=== PATIENT | male | born 1985 | race Hispanic/Latino ===

== ENCOUNTER 2017-02-07 15:11 | Emergency (ER) | payer OTHER ==
--- NOTE | 2017-02-07 16:45 | ED NECK/BACK PAIN COMPLAINT ---
History of Present Illness General Chief Complaint: Low Back Pain/Injury Stated Complaint: LBP Source: patient, family Exam Limitations: language barrier Vital Signs & Intake/Output Vital Signs & Intake/Output Vital Signs Date Time Temp Pulse Resp B/P B/P Pulse O2 O2 Flow FiO2 Mean Ox Delivery Rate 02/08 2004 98.6 72 16 133/80 97 Room Air 02/07 1744 98.7 89 18 140/72 99 Room Air 02/07 1712 96 02/07 1534 98.8 87 15 118/68 97 Room Air Room Air Allergies Coded Allergies: No Known Allergies (02/07/17) Triage Note: PT TO ED FOR LOWER BACK PAIN S/P TREE FELL ON PT AT WORK TODAY. PT REPORTS HE DID HIT HIS HEAD BUT DENIES ANY HEAD/NECK PAIN. DENIES DIFFICULTY BREATHING, BUT DOES HAVE RIB PAIN AND R ABD PAIN. PT IS ABLE TO MOVE FEEL AND HAS FEELING BIALTERALLY. Triage Nurses Notes Reviewed? yes Onset: Abrupt Duration: hour(s): Timing: single episode today Quality/Severity: moderate, severe Location: T-spine, lumbar spine, paraspinous muscles Radiation: DOWN RIGHT LEG TO KNEE Context: trauma Method of Injury: direct blow, fall HPI: 31-year-old male presents to emergency room complaining of right-sided back pain following injury at work today around 2 PM. Patient states that while at work a tree branch fell onto his back causing him to fall forward. Patient was able to walk following injury however with pain. Pain is described as constant, 10/10, radiating down right leg to right knee. Pain is worse with movement of back and elevation of the leg. Patient denies numbness, tingling, saddle anesthesia, urinary retention, bowel or bladder problems. (LOLIS BROWN) Past History Travel History Traveled to [place] past 21 day No Medical History Any Pertinent Medical History? none Neurological: NONE EENT: NONE Cardiovascular: NONE Respiratory: NONE Gastrointestinal: NONE Hepatic: NONE Renal: NONE Musculoskeletal: NONE Psychiatric: NONE Endocrine: NONE Blood Disorders: NONE Cancer(s): NONE Tetanus Vaccine: 11/03/12 Tetanus Status: up to date Surgical History Surgical History: non-contributory Psychosocial History What is your primary language Tajik Tobacco Use: Never used ETOH Use: denies use Illicit Drug Use: denies illicit drug use Family History Hx Contributory? No (LOLIS BROWN) Review of Systems Review of Systems Constitutional: Reports: no symptoms. Eyes: Reports: no symptoms. Ears, Nose, Throat, Mouth: Reports: no symptoms. Respiratory: Reports: no symptoms. Cardiovascular: Reports: no symptoms. Gastrointestinal/Abdominal: Reports: see HPI. Musculoskeletal: Reports: see HPI. Skin: Reports: no symptoms. Neurological/Psychological: Reports: no symptoms. All Other Systems: Reviewed and Negative (LOLIS BROWN) Physical Exam Physical Exam General Appearance: well developed/nourished, no apparent distress, alert Head: atraumatic, normal appearance Eyes: Bilateral: normal appearance, EOMI, normal inspection. Ears, Nose, Throat, Mouth: hearing grossly normal, moist mucous membrane Neck: normal inspection, supple, full range of motion, normal alignment Respiratory: normal breath sounds, chest non-tender, no respiratory distress, lungs clear Cardiovascular: regular rate/rhythm Gastrointestinal: normal bowel sounds, soft, tenderness Back: vertebral tenderness, evidence of trauma Extremities: non-tender, normal range of motion Neurologic/Psych: no motor/sensory deficits, awake, alert Skin: abrasion right thoracic back (LOLIS BROWN) Progress Differential Diagnosis: aortic dissection, C spine injury, carotid dissection, cauda equina syn, herniated disc, myofascial strain, pyelo/UTI, sciatica, spinal cord inj, thoracic outlet syn, T/L spine injury, ureterolithiasis Plan of Care: Orders Procedure Date/time Status PARTIAL THROMBOPLASTIN TIME 02/07 1657 Complete PROTHROMBIN TIME 02/07 1657 Complete COMPREHENSIVE METABOLIC PANEL 02/07 1657 Complete CBC WITHOUT DIFFERENTIAL 02/07 1657 Complete Laboratory Tests 02/07/17 1701: CBC w Diff NO MAN DIFF REQ, RBC 4.37 L, MCV 85.1, MCH 28.4, RDW 13.7, MPV 6.7 L, Gran % 85.8 H, Lymphocytes % 8.0 L, Monocytes % 6.1, Eosinophils % 0.1, Basophils % 0 L, Absolute Granulocytes 12.0 H, Absolute Lymphocytes 1.1 L, Absolute Monocytes 0.9 H, Absolute Eosinophils 0, Absolute Basophils 0, PUBS MCHC 33.4 02/07/17 1700: Anion Gap 14, Estimated GFR > 60, BUN/Creatinine Ratio 23.3, Glucose 123 H, Calcium 9.0, Total Bilirubin 0.3, AST 42, ALT 41, Alkaline Phosphatase 49, Total Protein 7.1, Albumin 4.3, Globulin 2.8, Albumin/Globulin Ratio 1.5, PT 10.3, INR 0.98, APTT 28 Diagnostic Imaging: Viewed by Me: Radiology Read, CT Scan. Discussed w/RAD: Radiology Read, CT Scan. Radiology Impression: PATIENT: CORKY SOL PRESENT AGE: 31 PATIENT ACCOUNT NO: [id number] : 87 LOCATION: [facility] ORDERING PHYSICIAN: VARGAS ARMSTRONG SERVICE DATE: 02/07/17 EXAM TYPE: RAD - XRY-RIBS BILATERAL ADDENDUM: There are thirteen rib-bearing vertebral bodies. FINDINGS: Lungs are clear. No consolidation, pneumothorax, or pleural effusion. The cardiomediastinal silhouette and pulmonary vasculature are normal. Evaluation of the osseous structures demonstrates acute nondisplaced fractures involving the right posterior 11th and 12th ribs. IMPRESSION: Acute nondisplaced fractures involving the right posterior 11th and 12th ribs. No left -sided rib fractures are identified. There are no pneumothoraces. Addendum Signed by: YAHAIRA ERNANDEZ MD 02/07 1720 EXAMINATION: XR RIBS, BILATERAL CLINICAL INFORMATION: Trauma. Evaluate for fracture. COMPARISON: None. TECHNIQUE : Single frontal view of the chest as well as 4 additional views of the bilateral ribs. FINDINGS: Lungs are clear. No consolidation, pneumothorax, or pleural effusion. The cardiomediastinal silhouette and pulmonary vasculature are normal. Evaluation of the osseous structures demonstrates an acute nondisplaced fracture involving the right posterior 11th rib as well as an acute nondisplaced fracture involving the right posterior 10th rib. IMPRESSION: Acute nondisplaced fractures involving the right posterior 10th and 11th ribs. No left-sided rib fractures are identified. There are no pneumothoraces. DICTATED BY: YAHAIRA ERNANDEZ MD DATE/TIME DICTATED:02/07/171655 PORCELAIN FINISH SPRAYER:DAV DATE/TIME TRANSCRIBED:02/07/171655 CONFIDENTIAL, DO NOT COPY WITHOUT APPROPRIATE AUTHORIZATION. <Electronically signed in Other Vendor System> SIGNED BY: YAHAIRA ERNANDEZ MD 02/07/17 1710, PATIENT: CORKY SOL PRESENT AGE: 31 PATIENT ACCOUNT NO: [id number] : 87 LOCATION: [facility] ORDERING PHYSICIAN: VARGAS ARMSTRONG SERVICE DATE: 02/07/176392 EXAM TYPE: RAD - XRY-LUMBAR SPINE ONE VIEW EXAMINATION: XR LUMBAR SPINE CLINICAL INFORMATION: Trauma. Assess for fracture. COMPARISON: Chest x-ray and right ribs also obtained 02/07/2017. TECHNIQUE: A single AP view of the lumbar spine was obtained. FINDINGS: There is a transitional vertebra at the thoracolumbar junction , with large ribs off the body of L1. There is a displaced fracture of the right transverse process of L5. There are less extensively displaced fractures of the L3 and L4 transverse processes on the right; the right L2 transverse process is obscured by overlying bowel but appears to have a displaced fracture on the chest/rib x-ray series. On the available image, vertebral body heights appear maintained. The sacroiliac joints are intact. The paravertebral structures on the left appear normal. There is loss of the psoas shadow on the right, which may be consistent with overlying bowel versus retroperitoneal fluid. The bowel gas pattern is nonspecific. There are no radiopaque foreign bodies. IMPRESSION: 1. There are multiple transverse process fractures on the right, and there may be a right retroperitoneal hematoma. Recommend CT scan of the abdomen and pelvis and of the thoracolumbar spine for further assessment. DICTATED BY: KONSTANTIN ASHBY MD DATE/TIME DICTATED:1654 PORCELAIN FINISH SPRAYER:DAV DATE/TIME TRANSCRIBED:02/07/171654 CONFIDENTIAL, DO NOT COPY WITHOUT APPROPRIATE AUTHORIZATION. <Electronically signed in Other Vendor System> SIGNED BY: KONSTANTIN ASHBY MD 02/07/17 1726, SERVICE DATE: 02/07/17 EXAM TYPE: CAT - CT ABD & PELVIS W IV CONTRAST; CT CHEST W IV CONTRAST EXAMINATION: CT CHEST WITH CONTRAST CT ABDOMEN AND PELVIS WITH CONTRAST CLINICAL INFORMATION: Status post trauma from fallen tree branch. Back pain and swelling. Rule out retroperitoneal bleeding. COMPARISON: Rib x-ray and lumbar spine x-rays of 02/07/2017. TECHNIQUE: Multidetector volumetric CT imaging of the chest, abdomen and pelvis was obtained after the administration of 95 mL of Optiray 320 intravenous contrast without immediate adverse reactions. Axial MIP volume rendering provided. Sagittal and coronal reformatted images were obtained. DLP: 371.77 mGy-cm FINDINGS: LAWN SPRINKLER INSTALLER: Unremarkable. CHEST: Lungs And Pleura: Mild dependent atelectasis is noted. The lungs are otherwise clear without evidence of nodules or inflammatory changes. No evidence of pneumothorax or pleural effusions. Mediastinum: No evidence of mediastinal vascular injury. The cardiac size is normal. No pericardial effusion. Trachea and central bronchi are well patent. No mediastinal or hilar adenopathy. Small soft tissue in the anterior superior mediastinum likely reflects residual thymus. Axilla And Chest Wall Soft Tissue: No axillary lymphadenopathy. Bilateral minimal gynecomastia is noted. The chest wall soft tissues are unremarkable except subcutaneous hematoma is noted in the wall of the right lower rib cage and right flank. ABDOMEN AND PELVIS: Liver, gallbladder and biliary tree: The liver is normal in size, shape and attenuation. No focal liver lesion or biliary ductal dilatation. The gallbladder is unremarkable without evidence of radiopaque stones, wall thickening or pericholecystic inflammatory changes. Pancreas: Unremarkable. Adrenal glands: Unremarkable. Spleen: Unremarkable. Kidneys, ureter and bladder: The kidneys are normal in size, shape and attenuation. There is symmetrical enhancement from the kidneys. No evidence of radiopaque urinary tract calculi, hydroureteronephrosis or perinephric stranding. The bladder is unremarkable without evidence of calculi, wall thickening or soft tissue mass. Gastrointestinal tract: The stomach is distended with ingested material and unremarkable. The small and large bowel loops are unremarkable. The appendix is normal. Peritoneum and retroperitoneum: A small amount of stranding is noted in the right retroperitoneum inferior to the kidney (series 602 image 49) reflecting small hematoma in this region. No free intraperitoneal air or fluid. Lymph nodes: No pathologically enlarged lymph nodes. Vasculature: No evidence of active contrast extravasation. The aortoiliac vessels are normal in caliber and well opacified. The vasculature is essentially unremarkable. Abdominal wall: Note is made of asymmetrical enlargement of the right paraspinous musculature from L2 to S1 level reflecting posttraumatic change/intramuscular hematoma. A large hematoma is noted in the subcutaneous tissue of the right lower chest wall posterolaterally extending into the right flank up to the level of iliac crest. It approximately measures 11.2 x 10.5 x 3.8 cm in maximum length, AP and transverse dimensions respectively. A small amount of dense fluid is noted in the subcutaneous tissue of the lower back in the midline (series 2 images 58 through 89). The psoas muscles are normal and symmetrical in appearance. Pelvic viscera: The prostate and seminal vesicles are unremarkable. OSSEOUS STRUCTURES: Please note that there are 13 rib-bearing thoracic-type vertebra and 4 [id number] lumbar-type vertebrae. Mildly displaced fractures of the right transverse processes of the L1, L2 and L4 are noted with nondisplaced fracture of the right transverse process of the L3. The vertebral body heights and alignment are maintained. The spinous processes are intact. There is a nondisplaced fracture of the posterior segment of the right 12th rib and 11th rib. No additional fractures are noted in the chest, abdomen and pelvis. IMPRESSION: 1. There are 13 thoracic-type vertebrae and 4 lumbar- type vertebrae. Mildly displaced fractures of the right transverse processes of the L1, L2 and L4 and nondisplaced fracture of the right transverse process of the L3. Nondisplaced fractures of the right 12th and 11th ribs posterior segments. 2. Moderate to large-sized hematoma in the subcutaneous tissue of the right lower chest wall extending into the right flank up to the level of superior margin of the iliac crest. Small right retroperitoneal hematoma at the inferior aspect of the kidney. Asymmetrical enlargement of the right paraspinous musculature, not involving the psoas muscle reflects posttraumatic change and may reflect intramuscular hematoma. Somewhat ill-defined hematoma in the subcutaneous tissue of the lower back in the midline. 3. No evidence of active contrast extravasation, solid or hollow viscus injury in the abdomen and pelvis. 4. No evidence of pleural effusions, pulmonary contusion or pneumothorax. DICTATED BY: NAHOMY MORALES MD DATE/TIME DICTATED:02/07/171846 PORCELAIN FINISH SPRAYER: DAV DATE/TIME TRANSCRIBED:02/07/171846 CONFIDENTIAL, DO NOT COPY WITHOUT APPROPRIATE AUTHORIZATION. Comments: 02/07/2017 9:06:39 PM Due to the fact that the patient has multiple traumatic injuries patient was transferred to [place] for further evaluation. Patient will require IV pain control. Patient was reevaluated multiple times and was hemodynamically stable here. We did not get a CT scan of his head or neck because he denied any trauma to this. (LISA ARMSTRONG,LOLIS) Departure Departure Disposition: [facility] (ACUTE) Condition: Stable Clinical Impression Primary Impression: Rib fracture Secondary Impressions: Multiple transverse process fractures, Retroperitoneal hematoma Referrals: PATIENT HAS NO PRIMARY CARE DR (PCP/Family) Departure Forms: Customer Survey Employee Industrial Accident General Discharge Information (LOLIS BROWN) PA/DEPUTY CLERK OF COURT Co-Sign Statement Statement: ED Attending supervision documentation- [x] I saw and evaluated the patient. I have also reviewed all the pertinent lab results and diagnostic results. I agree with the findings and the plan of care as documented in the PA's/DEPUTY CLERK OF COURT's documentation. [] I have reviewed the ED Record and agree with the PA's/DEPUTY CLERK OF COURT's documentation. [] Additions or exceptions (if any) to the PAs/DEPUTY CLERK OF COURT's note and plan are summarized below: [] (SERGIO KELLEY,TAINA New) Critical Care Note Critical Care Note Critical Care Time: 30-74 min (35) (LOLIS BROWN) ED Attending Observation Initial Observation Note: I have seen and personally examined CORKY SOL on 02/07/17 at 1859. I agree with the current emergency department documentation. The disposition (admission or discharge) is uncertain at this time, he needs a period of observation for the following reason(s): The ED Nurse caring for this patient has been personally informed as to what the patient is being observed for. (LOLIS BROWN)
[2017-02-07 17:08] LABS: ABSOLUTE BASOPHIL COUNT 0 /CUMM (0.0-0.2); ABSOLUTE EOSINOPHIL COUNT 0 /CUMM (0.0-0.7); ABSOLUTE LYMPH COUNT 1.1 /CUMM (1.2-3.4); ABSOLUTE MONOCYTE COUNT 0.9 /CUMM (0.10-0.60); BASOPHIL % 0 % (0.0-2.0); EOSINOPHIL % 0.1 % (0-5); HEMATOCRIT 37.2 % (42-52); MEAN CORPUSCULAR HGB 28.4 PG (27.0-31.0); MEAN CORPUSCULAR HGB CONC 33.4 G/DL (33.0-37.0); MEAN CORPUSCULAR VOLUME 85.1 FL (80.0-94.0); MEAN PLATELET VOLUME 6.7 FL (7.4-10.4); PLATELET COUNT 295 /CUMM (130-400); RBC DISTRIBUTION WIDTH 13.7 % (11.5-14.5); RED BLOOD CELL CT 4.37 /CUMM (4.70-6.10)
--- NOTE | 2017-02-07 17:10 | RADIOLOGY REPORT ---
EXAMINATION: XR RIBS, BILATERAL CLINICAL INFORMATION: Trauma. Evaluate for fracture. COMPARISON: None. TECHNIQUE: Single frontal view of the chest as well as 4 additional views of the bilateral ribs. FINDINGS: Lungs are clear. No consolidation, pneumothorax, or pleural effusion. The cardiomediastinal silhouette and pulmonary vasculature are normal. Evaluation of the osseous structures demonstrates an acute nondisplaced fracture involving the right posterior 11th rib as well as an acute nondisplaced fracture involving the right posterior 10th rib. IMPRESSION: Acute nondisplaced fractures involving the right posterior 10th and 11th ribs. No left-sided rib fractures are identified. There are no pneumothoraces.
[2017-02-07 17:14] LABS: GRANULOCYTE % 85.8 % (42.2-75.2)
[2017-02-07 17:19] LABS: PT 10.3 SEC (9.4-12.5); PTT 28 SEC (25-37)
--- NOTE | 2017-02-07 17:26 | RADIOLOGY REPORT ---
EXAMINATION: XR LUMBAR SPINE CLINICAL INFORMATION: Trauma. Assess for fracture. COMPARISON: Chest x-ray and right ribs also obtained 02/07/2017. TECHNIQUE: A single AP view of the lumbar spine was obtained. FINDINGS: There is a transitional vertebra at the thoracolumbar junction , with large ribs off the body of L1. There is a displaced fracture of the right transverse process of L5. There are less extensively displaced fractures of the L3 and L4 transverse processes on the right; the right L2 transverse process is obscured by overlying bowel but appears to have a displaced fracture on the chest/rib x-ray series. On the available image, vertebral body heights appear maintained. The sacroiliac joints are intact. The paravertebral structures on the left appear normal. There is loss of the psoas shadow on the right, which may be consistent with overlying bowel versus retroperitoneal fluid. The bowel gas pattern is nonspecific. There are no radiopaque foreign bodies. IMPRESSION: 1. There are multiple transverse process fractures on the right, and there may be a right retroperitoneal hematoma. Recommend CT scan of the abdomen and pelvis and of the thoracolumbar spine for further assessment.
--- NOTE | 2017-02-07 19:52 | CT SCAN REPORT ---
EXAMINATION: CT CHEST WITH CONTRAST CT ABDOMEN AND PELVIS WITH CONTRAST CLINICAL INFORMATION: Status post trauma from fallen tree branch. Back pain and swelling. Rule out retroperitoneal bleeding. COMPARISON: Rib x-ray and lumbar spine x-rays of 02/07/2017. TECHNIQUE: Multidetector volumetric CT imaging of the chest, abdomen and pelvis was obtained after the administration of 95 mL of Optiray 320 intravenous contrast without immediate adverse reactions. Axial MIP volume rendering provided. Sagittal and coronal reformatted images were obtained. DLP: 371.77 mGy-cm FINDINGS: STUNT MAN: Unremarkable. CHEST: Lungs And Pleura: Mild dependent atelectasis is noted. The lungs are otherwise clear without evidence of nodules or inflammatory changes. No evidence of pneumothorax or pleural effusions. Mediastinum: No evidence of mediastinal vascular injury. The cardiac size is normal. No pericardial effusion. Trachea and central bronchi are well patent. No mediastinal or hilar adenopathy. Small soft tissue in the anterior superior mediastinum likely reflects residual thymus. Axilla And Chest Wall Soft Tissue: No axillary lymphadenopathy. Bilateral minimal gynecomastia is noted. The chest wall soft tissues are unremarkable except subcutaneous hematoma is noted in the wall of the right lower rib cage and right flank. ABDOMEN AND PELVIS: Liver, gallbladder and biliary tree: The liver is normal in size, shape and attenuation. No focal liver lesion or biliary ductal dilatation. The gallbladder is unremarkable without evidence of radiopaque stones, wall thickening or pericholecystic inflammatory changes. Pancreas: Unremarkable. Adrenal glands: Unremarkable. Spleen: Unremarkable. Kidneys, ureter and bladder: The kidneys are normal in size, shape and attenuation. There is symmetrical enhancement from the kidneys. No evidence of radiopaque urinary tract calculi, hydroureteronephrosis or perinephric stranding. The bladder is unremarkable without evidence of calculi, wall thickening or soft tissue mass. Gastrointestinal tract: The stomach is distended with ingested material and unremarkable. The small and large bowel loops are unremarkable. The appendix is normal. Peritoneum and retroperitoneum: A small amount of stranding is noted in the right retroperitoneum inferior to the kidney (series 602 image 49) reflecting small hematoma in this region. No free intraperitoneal air or fluid. Lymph nodes: No pathologically enlarged lymph nodes. Vasculature: No evidence of active contrast extravasation. The aortoiliac vessels are normal in caliber and well opacified. The vasculature is essentially unremarkable. Abdominal wall: Note is made of asymmetrical enlargement of the right paraspinous musculature from L2 to S1 level reflecting posttraumatic change/intramuscular hematoma. A large hematoma is noted in the subcutaneous tissue of the right lower chest wall posterolaterally extending into the right flank up to the level of iliac crest. It approximately measures 11.2 x 10.5 x 3.8 cm in maximum length, AP and transverse dimensions respectively. A small amount of dense fluid is noted in the subcutaneous tissue of the lower back in the midline (series 2 images 58 through 89). The psoas muscles are normal and symmetrical in appearance. Pelvic viscera: The prostate and seminal vesicles are unremarkable. OSSEOUS STRUCTURES: Please note that there are 13 rib-bearing thoracic-type vertebra and 4 [id number] lumbar-type vertebrae. Mildly displaced fractures of the right transverse processes of the L1, L2 and L4 are noted with nondisplaced fracture of the right transverse process of the L3. The vertebral body heights and alignment are maintained. The spinous processes are intact. There is a nondisplaced fracture of the posterior segment of the right 12th rib and 11th rib. No additional fractures are noted in the chest, abdomen and pelvis. IMPRESSION: 1. There are 13 thoracic-type vertebrae and 4 lumbar-type vertebrae. Mildly displaced fractures of the right transverse processes of the L1, L2 and L4 and nondisplaced fracture of the right transverse process of the L3. Nondisplaced fractures of the right 12th and 11th ribs posterior segments. 2. Moderate to large-sized hematoma in the subcutaneous tissue of the right lower chest wall extending into the right flank up to the level of superior margin of the iliac crest. Small right retroperitoneal hematoma at the inferior aspect of the kidney. Asymmetrical enlargement of the right paraspinous musculature, not involving the psoas muscle reflects posttraumatic change and may reflect intramuscular hematoma. Somewhat ill-defined hematoma in the subcutaneous tissue of the lower back in the midline. 3. No evidence of active contrast extravasation, solid or hollow viscus injury in the abdomen and pelvis. 4. No evidence of pleural effusions, pulmonary contusion or pneumothorax.
[2017-02-07 20:04] VITALS: BP 133/80
== END 2017-02-07 20:49 | disposition short-term general hospital (02) ==
LOC: ERH 15:11
PROVIDERS: Physician Assistant Medical
DX: S22.41XA Multiple fractures of ribs, right side, initial encounter for closed fracture (principal); S32.018A Other fracture of first lumbar vertebra, initial encounter for closed fracture; S32.028A Other fracture of second lumbar vertebra, initial encounter for closed fracture; S32.048A Other fracture of fourth lumbar vertebra, initial encounter for closed fracture; S32.038A Other fracture of third lumbar vertebra, initial encounter for closed fracture; W20.8XXA Other cause of strike by thrown, projected or falling object, initial encounter; Y93.9 Activity, unspecified
CPT/HCPCS: 71111; 72020; 74177; 96374; 96375; J2405